=== PATIENT | female | born 2000 | race Caucasian/White ===

== ENCOUNTER 2018-11-23 17:40 | Emergency (ER) | payer OTHER ==
[2018-11-23] MEDS ORDERED: Levofloxacin 500 MG Tab PO ONE (17:41)
--- NOTE | 2018-11-23 18:11 | EDM.PDOC ---
ED HPI GENERAL MEDICAL PROBLEM - General Chief Complaint: Back Pain or Injury Stated Complaint: POSSIBLE KIDNEY INFECTION Time Seen by Provider: 11/23/18 18:00 Source of Information: Reports: Patient History Limitations: Reports: No Limitations - History of Present Illness INITIAL COMMENTS - FREE TEXT/NARRATIVE: Ligia comes into [facility] ED with RCVA pain over the past 5 days, sharp at times, with suspected low grade fever, chills, and some sweats. There is some dysuria with voiding, but no discharge or incontinence. There is no PMH of stone disease or UTI. She has tried no meds. Right Back Pain Score (Numeric/FACES): 7 - Related Data Allergies Allergy/AdvReac Type Severity Reaction Status Date / Time lamotrigine [From Lamictal] Allergy Rash Verified 11/23/18 18:00 lurasidone [From Latuda] Allergy Other Verified 11/23/18 18:00 ED ROS GENERAL - Review of Systems Review Of Systems: See Below Constitutional: Reports: Fever, Chills, Malaise HEENT: Reports: No Symptoms Respiratory: Reports: No Symptoms Cardiovascular: Reports: No Symptoms Endocrine: Reports: No Symptoms GI/Abdominal: Reports: Abdominal Pain (RUQ) : Reports: Dysuria, Pain Musculoskeletal: Reports: Back Pain Skin: Reports: No Symptoms Neurological: Reports: No Symptoms Hematologic/Lymphatic: Reports: No Symptoms Immunologic: Reports: No Symptoms ED EXAM, RENAL/ - Physical Exam Exam: See Below Exam Limited By: No Limitations General Appearance: Alert, WD/WN, No Apparent Distress Head: Normocephalic Neck: Normal Inspection Respiratory/Chest: Lungs Clear, Normal Breath Sounds Cardiovascular: Regular Rate, Rhythm, No Murmur GI/Abdominal: Normal Bowel Sounds, Soft, No Organomegaly, No Distention, No Mass , Guarding, Tender (RUQ) (Female) Exam: Deferred Rectal (Female) Exam: Deferred Back Exam: CVA Tenderness (R) Extremities: Normal Inspection Neurological: Alert, Oriented, CN II-XII Intact, Normal Cognition, Normal Gait, No Motor/Sensory Deficits Psychiatric: Normal Affect, Normal Mood Skin Exam: Warm, Dry, Intact, Normal Color, No Rash Lymphatic: No Adenopathy Course - Vital Signs Text/Narrative:: Following assesment, labs noted CBC and BMP baseline for age, Lactic acid 1.1; the UA was abnormal with WBCs, RBCs, and nitrites pos. A uC was set up, and she will begin Levaquin 500 mg qd pending UC&S reports. Last Recorded V/S: Last Vital Signs Temp 37.1 C 11/23/18 17:40 Pulse 139 H 11/23/18 17:40 Resp 17 11/23/18 17:40 BP 121/76 11/23/18 17:40 Pulse Ox 96 11/23/18 17:40 - Orders/Labs/Meds Orders: Active Orders 24 hr Category Date Time Status CULTURE URINE [RM] Stat Lab 11/23/18 17:46 Received Labs: Laboratory Tests 11/23/18 11/23/18 11/23/18 Range/Units 17:46 18:30 18:30 WBC 9.6 (4.5-12.0) X10-3/uL RBC 4.60 (3.23-5.20) x10(6)uL Hgb 13.2 (11.5-15.5) g/dL Hct 39.0 (30.0-51.3) % MCV 84.6 (80-96) fL MCH 28.6 (27.7-33.6) pg MCHC 33.8 (32.2-35.4) g/dL RDW 13.0 (11.5-15.5) % Plt Count 274 (125-369) X10(3)uL MPV 7.7 (7.4-10.4) fL Neut % (Auto) 80.6 (46-82) % Lymph % (Auto) 10.3 L (13-37) % [place] % (Auto) 8.7 (4-12) % Eos % (Auto) 0 L (1.0-5.0) % Baso % (Auto) 0 (0-2) % Neut # (Auto) 7.8 (1.6-8.3) # Lymph # (Auto) 1.0 (0.6-5.0) # [place] # (Auto) 0.8 (0.0-1.3) # Eos # (Auto) 0.0 (0.0-0.8) # Baso # (Auto) 0.0 (0.0-0.2) # Sodium 137 (135-145) mmol/L Potassium 3.3 L (3.5-5.3) mmol/L Chloride 101 (100-110) mmol/L Carbon Dioxide 25 (21-32) mmol/L BUN 8 (7-18) mg/dL Creatinine 1.1 H (0.55-1.02) mg/dL Est Cr Clr Drug Dosing 76.37 mL/min Estimated GFR (MDRD) > 60 (>60) BUN/Creatinine Ratio 7.3 L (9-20) Glucose 109 (80-116) mg/dL Lactic Acid (0.4-2.2) mmol/L Calcium 8.6 (8.6-10.2) mg/dL Urine Color Yellow (YELLOW) Urine Appearance Cloudy (CLEAR) Urine pH 5.0 (5.0-6.5) Ur Specific [place] 1.015 (1.010-1.025) Urine Protein 30 H (NEGATIVE) mg/dL Urine Glucose (UA) Normal (NORMAL) mg/dL Urine Ketones 15 H (NEGATIVE) mg/dL Urine Occult Blood Large H (NEGATIVE) Urine Nitrite Positive H (NEGATIVE) Urine Bilirubin Small H (NEGATIVE) Urine Urobilinogen Normal (NEGATIVE) mg/dL Ur Leukocyte Esterase Large H (NEGATIVE) Urine RBC 10-20 H (0-5) Urine WBC 75-100 H (0-5) Ur Squamous Epith Cells Occasional (NS,R,O) Urine Bacteria Many H (NS) 11/23/18 Range/Units 18:30 WBC (4.5-12.0) X10-3/uL RBC (3.23-5.20) x10(6)uL Hgb (11.5-15.5) g/dL Hct (30.0-51.3) % MCV (80-96) fL MCH (27.7-33.6) pg MCHC (32.2-35.4) g/dL RDW (11.5-15.5) % Plt Count (125-369) X10(3)uL MPV (7.4-10.4) fL Neut % (Auto) (46-82) % Lymph % (Auto) (13-37) % [place] % (Auto) (4-12) % Eos % (Auto) (1.0-5.0) % Baso % (Auto) (0-2) % Neut # (Auto) (1.6-8.3) # Lymph # (Auto) (0.6-5.0) # [place] # (Auto) (0.0-1.3) # Eos # (Auto) (0.0-0.8) # Baso # (Auto) (0.0-0.2) # Sodium (135-145) mmol/L Potassium (3.5-5.3) mmol/L Chloride (100-110) mmol/L Carbon Dioxide (21-32) mmol/L BUN (7-18) mg/dL Creatinine (0.55-1.02) mg/dL Est Cr Clr Drug Dosing mL/min Estimated GFR (MDRD) (>60) BUN/Creatinine Ratio (9-20) Glucose (80-116) mg/dL Lactic Acid 1.0 (0.4-2.2) mmol/L Calcium (8.6-10.2) mg/dL Urine Color (YELLOW) Urine Appearance (CLEAR) Urine pH (5.0-6.5) Ur Specific [place] (1.010-1.025) Urine Protein (NEGATIVE) mg/dL Urine Glucose (UA) (NORMAL) mg/dL Urine Ketones (NEGATIVE) mg/dL Urine Occult Blood (NEGATIVE) Urine Nitrite (NEGATIVE) Urine Bilirubin (NEGATIVE) Urine Urobilinogen (NEGATIVE) mg/dL Ur Leukocyte Esterase (NEGATIVE) Urine RBC (0-5) Urine WBC (0-5) Ur Squamous Epith Cells (NS,R,O) Urine Bacteria (NS) Departure - Departure Time of Disposition: 19:20 Disposition: Home, Self-Care 01 Condition: Fair Clinical Impression: Urinary tract infection Qualifiers: Urinary tract infection type: site unspecified Hematuria presence: without hematuria Qualified Code(s): N39.0 - Urinary tract infection, site not specified - Discharge Information *PRESCRIPTION DRUG MONITORING PROGRAM REVIEWED*: Not Applicable *COPY OF PRESCRIPTION DRUG MONITORING REPORT IN PATIENT KANDIS: Not Applicable Referrals: PCP,None [Primary Care Provider] - Forms: ED Department Discharge - Problem List & Annotations (1) Urinary tract infection SNOMED Code(s): 16906427 Code(s): N39.0 - URINARY TRACT INFECTION, SITE NOT SPECIFIED Status: Acute Current Visit: Yes Annotation/Comment:: UTI, possible early pyelonephritis. The CBC and Lactic a were normal. I dispensed Levaquin 500 mg qd , advised hydration and routine fever therapy. She should call the ED in 48 hrs for UC&S report. Qualifiers: Urinary tract infection type: site unspecified Hematuria presence: without hematuria Qualified Code(s): N39.0 - Urinary tract infection, site not specified - Problem List Review Problem List Initiated/Reviewed/Updated: Yes - My Orders Last 24 Hours: My Active Orders 11/23/18 17:46 CULTURE URINE [RM] Stat - Assessment/Plan Last 24 Hours: My Active Orders 11/23/18 17:46 CULTURE URINE [RM] Stat Plan: Follow up with PCP for additional medication and surveillance.
== END 2018-11-23 19:27 | disposition home or self-care (01) ==
LOC: FB.ED 17:40
DX: N39.0 Urinary tract infection, site not specified (principal); Z88.8 Allergy status to other drugs, medicaments and biological substances
CPT/HCPCS: 36415; 80048; 81001; 83605; 85025; 87086; 87088; 99283; A9270; 87186

== ENCOUNTER 2019-01-19 09:25 | Emergency (ER) | payer OTHER ==
--- NOTE | 2019-01-19 09:39 | EDM.PDOCBH ---
ED HPI GENERAL MEDICAL PROBLEM - General Stated Complaint: DOESN'T FEEL SAFE Time Seen by Provider: 01/19/19 09:39 Source of Information: Reports: Patient History Limitations: Reports: No Limitations - History of Present Illness INITIAL COMMENTS - FREE TEXT/NARRATIVE: 18-year-old female who reports that for the past 1-1/2 weeks has not really been feeling well about herself and has been feeling more sad and depressed. And , over the weekend she has been feeling very down and has been having thoughts of suicide. She states she does not feel safe with herself and she reports that over the weekend she was thinking about getting into the tub and using her razor and slashing her wrist. Today on the way to work she reports that she Having recurring thoughts of running off the road and rolling her car to kill her self and once at work she was having thoughts of getting a razor and going into the bathroom and slicing her wrists. She states that she does not really want to do these things but feels compelled to do them and doesn't feel that she has any options are way out. She feels very hopeless and very sad and very depressed. She is quite tearful during the interview. She denies doing anything to harm her self today. No nausea or vomiting. No fevers or chills. No cough or sore throat. She is having no pain but her mental anguish which is quite severe. There are no other associated signs or symptoms. There are no other modifying factors. Onset: Other (Increasing sadness and depression over the past week and a half but with perseverative thoughts of suicide over the weekend and worse today.) Duration: Getting Worse Location: Reports: Other (No pain except for minimal [place] which is quite severe.) Quality: Reports: Other (As above) Severity: Severe Improves with: Reports: None Worsens with: Reports: None Context: Reports: Other (As above) Associated Symptoms: Reports: No Other Symptoms (Except as above) Treatments TRAVEL PHYSICAL THERAPIST: Reports: Other (see below) (Nothing. She does report that she has been taking her medications as directed by her doctor. She did miss 2 days last week but otherwise has been taking them appropriately.) - Related Data Allergies Allergy/AdvReac Type Severity Reaction Status Date / Time lamotrigine [From Lamictal] Allergy Rash Verified 11/23/18 18:00 lurasidone [From Latuda] Allergy Other Verified 11/23/18 18:00 Home Meds: Home Meds ARIPiprazole [Aripiprazole] 7.5 mg PO BEDTIME 01/19/19 [History] Escitalopram [Lexapro] 2.5 mg PO BEDTIME 01/19/19 [History] hydrOXYzine HCl [Hydroxyzine HCl] 25 mg PO DAILY 01/19/19 [History] Past Medical History Psychiatric History: Reports: Bipolar - Past Surgical History Other Surgical History Comment: No previous surgeries. Social & Family History - Tobacco Use Smoking Status *Q: Unknown Ever Smoked (Nonsmoker) Second Hand Smoke Exposure: Yes - Caffeine Use Caffeine Use: Reports: Coffee, Soda - Alcohol Use Alcohol Use History: No - Recreational Drug Use Recreational Drug Use: No - Living Situation & Occupation Occupation: Employed ED ROS GENERAL - Review of Systems Review Of Systems: See Below Constitutional: Reports: No Symptoms HEENT: Reports: No Symptoms Respiratory: Reports: No Symptoms Cardiovascular: Reports: No Symptoms Endocrine: Reports: No Symptoms GI/Abdominal: Reports: No Symptoms : Reports: No Symptoms Musculoskeletal: Reports: No Symptoms Skin: Reports: No Symptoms Neurological: Reports: No Symptoms Psychiatric: Reports: Depression, Suicidal Ideation Hematologic/Lymphatic: Reports: No Symptoms Immunologic: Reports: No Symptoms ED EXAM, BEHAVIORAL HEALTH - Physical Exam Exam: See Below Exam Limited By: No Limitations General Appearance: Alert, WD/WN, Moderate Distress, Other (Tearful) Eye Exam: Bilateral Eye: EOMI, Normal Inspection, PERRL Ears: Normal External Exam, Hearing Grossly Normal Nose: Normal Inspection, Normal Mucosa, No Blood Throat/Mouth: Normal Inspection, Normal Lips, Normal Oropharynx, Normal Voice, No Airway Compromise Head: Atraumatic, Normocephalic Neck: Normal Inspection, Supple, Non-Tender, Full Range of Motion Respiratory/Chest: No Respiratory Distress, Lungs Clear, Normal Breath Sounds, No Accessory Muscle Use, Chest Non-Tender Cardiovascular: Normal Peripheral Pulses, Regular Rate, Rhythm, No JVD GI/Abdominal: Normal Bowel Sounds, Soft, Non-Tender, No Mass Back Exam: Normal Inspection, Full Range of Motion Extremities: Normal Inspection, Normal Range of Motion, Non-Tender, No Pedal Edema, Normal Capillary Refill Neurological: Alert, CN II-XII Intact, Normal Cognition, No Motor/Sensory Deficits, Oriented x 3 Psychiatric: Normal Cognition, Depressed Mood, Suicidal Plan, Suicidal Thoughts Skin Exam: Warm, Dry, Intact, Normal color, No rash. No: Signs of self injury COURSE, BEHAVIORAL HEALTH COMP - Course Orders, Labs, Meds: Laboratory Tests 01/19/19 01/19/19 01/19/19 Range/Units 09:48 09:48 09:48 WBC 6.4 (4.5-12.0) X10-3/uL RBC 4.90 (3.23-5.20) x10(6)uL Hgb 14.1 (11.5-15.5) g/dL Hct 41.8 (30.0-51.3) % MCV 85.3 (80-96) fL MCH 28.9 (27.7-33.6) pg MCHC 33.9 (32.2-35.4) g/dL RDW 12.8 (11.5-15.5) % Plt Count 341 (125-369) X10(3)uL MPV 8.5 (7.4-10.4) fL Neut % (Auto) 75.0 (46-82) % Lymph % (Auto) 19.3 (13-37) % [place] % (Auto) 4.9 (4-12) % Eos % (Auto) 0 L (1.0-5.0) % Baso % (Auto) 0 (0-2) % Neut # (Auto) 4.9 (1.6-8.3) # Lymph # (Auto) 1.2 (0.6-5.0) # [place] # (Auto) 0.3 (0.0-1.3) # Eos # (Auto) 0.0 (0.0-0.8) # Baso # (Auto) 0.0 (0.0-0.2) # Sodium 140 (135-145) mmol/L Potassium 4.2 (3.5-5.3) mmol/L Chloride 105 (100-110) mmol/L Carbon Dioxide 26 (21-32) mmol/L BUN 7 (7-18) mg/dL Creatinine 0.8 (0.55-1.02) mg/dL Est Cr Clr Drug Dosing TNP Estimated GFR (MDRD) > 60 (>60) BUN/Creatinine Ratio 8.8 L (9-20) Glucose 87 (80-116) mg/dL Calcium 8.9 (8.6-10.2) mg/dL Total Bilirubin 0.2 (0.1-1.3) mg/dL AST 14 (5-25) IU/L ALT 18 (12-36) U/L Alkaline Phosphatase 90 (56-112) IU/L Total Protein 7.2 (6.0-8.0) g/dL Albumin 3.4 L (3.5-5.2) g/dL Globulin 3.8 g/dL Albumin/Globulin Ratio 0.9 TSH, Ultra Sensitive 1.17 (0.36-3.74) IU/mL Urine Color (YELLOW) Urine Appearance (CLEAR) Urine pH (5.0-6.5) Ur Specific [place] (1.010-1.025) Urine Protein (NEGATIVE) mg/dL Urine Glucose (UA) (NORMAL) mg/dL Urine Ketones (NEGATIVE) mg/dL Urine Occult Blood (NEGATIVE) Urine Nitrite (NEGATIVE) Urine Bilirubin (NEGATIVE) Urine Urobilinogen (NEGATIVE) mg/dL Ur Leukocyte Esterase (NEGATIVE) Urine RBC (0-5) Urine WBC (0-5) Ur Squamous Epith Cells (NS,R,O) Urine Bacteria (NS) Urine HCG, Qual (NEGATIVE) Salicylates < 2.8 L (<2.8) mg/dL Urine Opiates Screen (NEGATIVE) Ur Oxycodone Screen (NEGATIVE) Ur Propoxyphene Screen (NEGATIVE) Acetaminophen < 2 L (<2) ug/mL Ur Barbituates Screen (NEGATIVE) Ur Tricyclics Screen (NEGATIVE) Ur Phencyclidine Scrn (NEGATIVE) Ur Amphetamine Screen (NEGATIVE) Urine MDMA Screen (NEGATIVE) U Benzodiazepines Scrn (NEGATIVE) U Cocaine Metab Screen (NEGATIVE) U Marijuana (THC) Screen (NEGATIVE) Ethyl Alcohol < 0.03 (<0.03) % 01/19/19 01/19/19 01/19/19 Range/Units 10:52 10:52 10:52 WBC (4.5-12.0) X10-3/uL RBC (3.23-5.20) x10(6)uL Hgb (11.5-15.5) g/dL Hct (30.0-51.3) % MCV (80-96) fL MCH (27.7-33.6) pg MCHC (32.2-35.4) g/dL RDW (11.5-15.5) % Plt Count (125-369) X10(3)uL MPV (7.4-10.4) fL Neut % (Auto) (46-82) % Lymph % (Auto) (13-37) % [place] % (Auto) (4-12) % Eos % (Auto) (1.0-5.0) % Baso % (Auto) (0-2) % Neut # (Auto) (1.6-8.3) # Lymph # (Auto) (0.6-5.0) # [place] # (Auto) (0.0-1.3) # Eos # (Auto) (0.0-0.8) # Baso # (Auto) (0.0-0.2) # Sodium (135-145) mmol/L Potassium (3.5-5.3) mmol/L Chloride (100-110) mmol/L Carbon Dioxide (21-32) mmol/L BUN (7-18) mg/dL Creatinine (0.55-1.02) mg/dL Est Cr Clr Drug Dosing Estimated GFR (MDRD) (>60) BUN/Creatinine Ratio (9-20) Glucose (80-116) mg/dL Calcium (8.6-10.2) mg/dL Total Bilirubin (0.1-1.3) mg/dL AST (5-25) IU/L ALT (12-36) U/L Alkaline Phosphatase (56-112) IU/L Total Protein (6.0-8.0) g/dL Albumin (3.5-5.2) g/dL Globulin g/dL Albumin/Globulin Ratio TSH, Ultra Sensitive (0.36-3.74) IU/mL Urine Color Yellow (YELLOW) Urine Appearance Clear (CLEAR) Urine pH 5.0 (5.0-6.5) Ur Specific [place] 1.020 (1.010-1.025) Urine Protein Negative (NEGATIVE) mg/dL Urine Glucose (UA) Normal (NORMAL) mg/dL Urine Ketones 15 H (NEGATIVE) mg/dL Urine Occult Blood Negative (NEGATIVE) Urine Nitrite Negative (NEGATIVE) Urine Bilirubin Small H (NEGATIVE) Urine Urobilinogen Normal (NEGATIVE) mg/dL Ur Leukocyte Esterase Small H (NEGATIVE) Urine RBC 0-5 (0-5) Urine WBC 0-5 (0-5) Ur Squamous Epith Cells Moderate H (NS,R,O) Urine Bacteria Moderate H (NS) Urine HCG, Qual Negative (NEGATIVE) Salicylates (<2.8) mg/dL Urine Opiates Screen Negative (NEGATIVE) Ur Oxycodone Screen Negative (NEGATIVE) Ur Propoxyphene Screen Negative (NEGATIVE) Acetaminophen (<2) ug/mL Ur Barbituates Screen Negative (NEGATIVE) Ur Tricyclics Screen Negative (NEGATIVE) Ur Phencyclidine Scrn Negative (NEGATIVE) Ur Amphetamine Screen Negative (NEGATIVE) Urine MDMA Screen Negative (NEGATIVE) U Benzodiazepines Scrn Negative (NEGATIVE) U Cocaine Metab Screen Negative (NEGATIVE) U Marijuana (THC) Screen Negative (NEGATIVE) Ethyl Alcohol (<0.03) % Re-Assessment/Re-Exam: 11:15 AM: Patient has been calm and cooperative. Her laboratory tests are all reassuringly normal. This includes a negative test. Negative drug urine screen. A negative alcohol. Negative acetaminophen and salicylate and a normal TSH. The patient is definitely having psychiatric compensation and will need inpatient psychiatric care. The patient is agreeable to inpatient admission. She would prefer to go to the psychiatric facility at [facility]. I will call and discuss her case with them. 11:30 AM: I discussed the patient's case with Dr. Arvizu, psychiatrist at [facility], and he has agreed to accept the patient in transfer. The charge nurse was on the call as well and has certify that they do have a bed and the facility available and are capable of taking care of this patient. Therefore the patient will be transferred to [facility] psychiatric unit for direct admission. The patient will need a protected and monitored transport and we are attempting to arrange that now. Departure - Departure Time of Disposition: 11:40 Disposition: DC/Tfer to Psych Hosp/Unit 65 Condition: Fair (Stable) Clinical Impression: Suicidal ideation Bipolar disorder current episode depressed Qualifiers: Current episode severity: severe Psychotic features: without psychotic features Qualified Code(s): F31.4 - Bipolar disorder, current episode depressed , severe, without psychotic features - Discharge Information Referrals: Rosa Pack PA-C [Primary Care Provider] -
[2019-01-19 10:48] LABS: ACETAMINOPHEN < 2 ug/mL (<2)
[2019-01-21 09:09] LABS: CHLAMYDIA TRACHOMATIS, NAA Negative (Negative); NEISSERIA GONORRHOEAE, NAA Negative (Negative)
== END 2019-01-19 13:42 ==
LOC: FB.ED 09:25
DX: F31.4 Bipolar disorder, current episode depressed, severe, without psychotic features (principal); Z77.22 Contact with and (suspected) exposure to environmental tobacco smoke (acute) (chronic); Z79.899 Other long term (current) drug therapy; Z88.8 Allergy status to other drugs, medicaments and biological substances
CPT/HCPCS: 36415; 80053; 80305-QW; 81001; 81025; 84443; 85025; 87491; 87591; 99285; G0480

== ENCOUNTER 2020-03-12 13:58 | Emergency (ER) | payer OTHER ==
--- NOTE | 2020-03-12 14:12 | EDM.PDOC ---
ED HPI GENERAL MEDICAL PROBLEM - General Chief Complaint: Headache Stated Complaint: NUMB SENSATION ALL OVER, HEADACHE AND SOME NEAUSEA Time Seen by Provider: 03/12/20 15:00 Source of Information: Reports: Patient History Limitations: Reports: No Limitations - History of Present Illness INITIAL COMMENTS - FREE TEXT/NARRATIVE: 20 yo F who presented to the ER with headache and generalized numbness. Reports that symptoms started earlier today and got progressively worse. Rates Headache as 6/10. [place] nauseous but no vomiting. No fever, chills. Presented to the ER for further evaluation. Onset: Today Onset Date: 03/12/20 Onset Time: 08:00 Duration: Day(s): (Started earlier today) Location: Reports: Head Quality: Reports: Ache Severity: Moderate Improves with: Reports: None Worsens with: Reports: None Associated Symptoms: Reports: No Other Symptoms - Related Data Allergies Allergy/AdvReac Type Severity Reaction Status Date / Time lamotrigine [From Lamictal] Allergy Rash Verified 11/23/18 18:00 lurasidone [From Latuda] Allergy Other Verified 11/23/18 18:00 Home Meds: Home Meds ARIPiprazole [Abilify] 15 mg PO DAILY 03/12/20 [History] Cholecalciferol (Vitamin D3) [Vitamin D3] 2,000 unit PO DAILY 03/12/20 [History] Folic Acid 1 mg PO DAILY 03/12/20 [History] Sertraline HCl [Zoloft] 50 mg PO DAILY 03/12/20 [History] traZODone HCl [Trazodone HCl] 50 mg PO BEDTIME 03/12/20 [History] Past Medical History - Past Health History Medical/Surgical History: Denies Medical/Surgical History Psychiatric History: Reports: Bipolar - Past Surgical History Other Surgical History Comment: No previous surgeries. Social & Family History - Family History Family Medical History: No Pertinent Family History - Caffeine Use Caffeine Use: Reports: Coffee, Soda Caffeine Use Comment: pop sometimes - Living Situation & Occupation Occupation: Employed ED ROS GENERAL - Review of Systems Review Of Systems: See Below Constitutional: Reports: No Symptoms HEENT: Reports: No Symptoms Respiratory: Reports: No Symptoms Cardiovascular: Reports: No Symptoms Endocrine: Reports: No Symptoms GI/Abdominal: Reports: No Symptoms : Reports: No Symptoms Musculoskeletal: Reports: No Symptoms Skin: Reports: No Symptoms Neurological: Reports: Headache Psychiatric: Reports: No Symptoms Hematologic/Lymphatic: Reports: No Symptoms Immunologic: Reports: No Symptoms - Physical Exam Exam: See Below Exam Limited By: No Limitations General Appearance: WD/WN, No Apparent Distress Eye Exam: Bilateral Eye: Foreign Body, PERRL Ears: Normal External Exam, Normal Canal, Hearing Grossly Normal Nose: Normal Inspection, Normal Mucosa Throat/Mouth: Normal Inspection, Normal Lips, Normal Teeth, Normal Oropharynx, Normal Voice Head Exam: Atraumatic, Normocephalic Neck: Normal Inspection, Supple, Non-Tender, Full Range of Motion Respiratory/Chest: No Respiratory Distress, Lungs Clear, No Accessory Muscle Use Cardiovascular: Normal Peripheral Pulses, Regular Rate, Rhythm, No Edema, No JVD, No Murmur GI/Abdominal: Normal Bowel Sounds, Soft, Non-Tender, No Organomegaly Neuro Exam (Abbreviated): Alert, Oriented, CN II-XII Intact, Normal Cognition, Normal Gait, Normal Reflexes, No Motor/Sensory Deficits Back Exam: Normal Inspection, Full Range of Motion Extremities: Normal Inspection, Normal Range of Motion, Non-Tender, No Pedal Edema, Normal Capillary Refill Psychiatric: Normal Affect, Normal Mood Skin Exam: Warm, Dry, Intact, Normal Color, No Rash Course - Vital Signs Last Recorded V/S: Last Vital Signs Temp 36.6 C 03/12/20 14:10 Pulse 84 03/12/20 16:05 Resp 18 03/12/20 16:05 BP 122/73 03/12/20 16:05 Pulse Ox 95 03/12/20 16:05 - Orders/Labs/Meds Labs: Laboratory Tests 03/12/20 03/12/20 03/12/20 Range/Units 14:30 14:30 14:30 WBC 6.6 (3.0-10.3) x10-3/uL RBC 4.89 (3.60-5.20) x10(6)uL Hgb 13.6 (11.4-15.5) g/dL Hct 41.9 (34.2-48.2) % MCV 85.7 (76.7-100.5) fL MCH 27.8 (23.9-33.9) pg MCHC 32.4 (31.9-34.8) g/dL RDW 13.3 (12.3-16.5) % Plt Count 340 (151-488) x10(3)uL MPV 7.5 (7.1-12.4) fL Neut % (Auto) 58.1 (30.8-76.2) % Lymph % (Auto) 32.6 (18.4-52.1) % [place] % (Auto) 8.0 (4.4-15.7) % Eos % (Auto) 0.9 (0.6-8.1) % Baso % (Auto) 0.4 (0.2-1.5) % Neut # (Auto) 3.9 (1.5-6.3) x10-3/uL Lymph # (Auto) 2.2 (1.0-4.4) x10-3/uL [place] # (Auto) 0.5 (0.3-1.0) x10-3/uL Eos # (Auto) 0.1 (0.0-0.8) x10-3/uL Baso # (Auto) 0.0 (0.0-0.1) x10-3/uL Sodium 140 (135-145) mmol/L Potassium 3.9 (3.5-5.3) mmol/L Chloride 103 (100-110) mmol/L Carbon Dioxide 26 (21-32) mmol/L BUN 9 (7-18) mg/dL Creatinine 0.8 (0.55-1.02) mg/dL Est Cr Clr Drug Dosing TNP Estimated GFR (MDRD) > 60 (>60) BUN/Creatinine Ratio 11.3 (9-20) Glucose 114 (80-116) mg/dL Calcium 8.6 (8.6-10.2) mg/dL Magnesium 2.1 (1.8-2.5) mg/dL Total Bilirubin 0.1 (0.1-1.3) mg/dL AST 14 (5-25) IU/L ALT 19 (12-36) U/L Alkaline Phosphatase 98 (56-112) IU/L Total Protein 7.1 (6.0-8.0) g/dL Albumin 3.4 L (3.5-5.2) g/dL Globulin 3.7 g/dL Albumin/Globulin Ratio 0.9 Urine Color (YELLOW) Urine Appearance (CLEAR) Urine pH (5.0-6.5) Ur Specific [place] (1.010-1.025) Urine Protein (NEGATIVE) mg/dL Urine Glucose (UA) (NORMAL) mg/dL Urine Ketones (NEGATIVE) mg/dL Urine Occult Blood (NEGATIVE) Urine Nitrite (NEGATIVE) Urine Bilirubin (NEGATIVE) Urine Urobilinogen (NEGATIVE) mg/dL Ur Leukocyte Esterase (NEGATIVE) Urine RBC (0-5) Urine WBC (0-5) Ur Squamous Epith Cells (NS,R,O) Urine Bacteria (NS) Urine HCG, Qual (NEGATIVE) 03/12/20 03/12/20 Range/Units 16:10 16:10 WBC (3.0-10.3) x10-3/uL RBC (3.60-5.20) x10(6)uL Hgb (11.4-15.5) g/dL Hct (34.2-48.2) % MCV (76.7-100.5) fL MCH (23.9-33.9) pg MCHC (31.9-34.8) g/dL RDW (12.3-16.5) % Plt Count (151-488) x10(3)uL MPV (7.1-12.4) fL Neut % (Auto) (30.8-76.2) % Lymph % (Auto) (18.4-52.1) % [place] % (Auto) (4.4-15.7) % Eos % (Auto) (0.6-8.1) % Baso % (Auto) (0.2-1.5) % Neut # (Auto) (1.5-6.3) x10-3/uL Lymph # (Auto) (1.0-4.4) x10-3/uL [place] # (Auto) (0.3-1.0) x10-3/uL Eos # (Auto) (0.0-0.8) x10-3/uL Baso # (Auto) (0.0-0.1) x10-3/uL Sodium (135-145) mmol/L Potassium (3.5-5.3) mmol/L Chloride (100-110) mmol/L Carbon Dioxide (21-32) mmol/L BUN (7-18) mg/dL Creatinine (0.55-1.02) mg/dL Est Cr Clr Drug Dosing Estimated GFR (MDRD) (>60) BUN/Creatinine Ratio (9-20) Glucose (80-116) mg/dL Calcium (8.6-10.2) mg/dL Magnesium (1.8-2.5) mg/dL Total Bilirubin (0.1-1.3) mg/dL AST (5-25) IU/L ALT (12-36) U/L Alkaline Phosphatase (56-112) IU/L Total Protein (6.0-8.0) g/dL Albumin (3.5-5.2) g/dL Globulin g/dL Albumin/Globulin Ratio Urine Color Yellow (YELLOW) Urine Appearance Clear (CLEAR) Urine pH 5.0 (5.0-6.5) Ur Specific [place] 1.015 (1.010-1.025) Urine Protein Negative (NEGATIVE) mg/dL Urine Glucose (UA) Normal (NORMAL) mg/dL Urine Ketones Negative (NEGATIVE) mg/dL Urine Occult Blood Negative (NEGATIVE) Urine Nitrite Negative (NEGATIVE) Urine Bilirubin Negative (NEGATIVE) Urine Urobilinogen Normal (NEGATIVE) mg/dL Ur Leukocyte Esterase Negative (NEGATIVE) Urine RBC 0-5 (0-5) Urine WBC 0-5 (0-5) Ur Squamous Epith Cells Few H (NS,R,O) Urine Bacteria Few H (NS) Urine HCG, Qual Negative (NEGATIVE) Meds: Medications Discontinued Medications Generic Name Dose Route Start Last Admin Trade Name Freq PRN Reason Stop Dose Admin Diphenhydramine HCl 25 mg 03/12/20 14:16 03/12/20 15:00 Benadryl IVPUSH 03/12/20 14:17 25 mg ONETIME ONE Administration Sodium Chloride 1,000 mls @ 1,000 mls/hr 03/12/20 14:14 03/12/20 14:50 Normal Saline IV 03/12/20 15:13 1,000 mls/hr .BOLUS ONE Administration Ketorolac Tromethamine 30 mg 03/12/20 14:15 03/12/20 15:15 Toradol IVPUSH 03/12/20 14:16 30 mg ONETIME ONE Administration Ketorolac Tromethamine Confirm 03/12/20 14:51 03/12/20 16:06 Toradol Administered 03/12/20 14:52 Not Given Dose 30 mg .ROUTE .STK-MED ONE Ketorolac Tromethamine Confirm 03/12/20 15:13 03/12/20 16:06 Toradol Administered 03/12/20 15:14 Not Given Dose 30 mg .ROUTE .STK-MED ONE Departure - Departure Time of Disposition: 16:47 Disposition: Home, Self-Care 01 Condition: Good Clinical Impression: Migraine, Complaint of paresthesia, Migraine - Discharge Information Instructions: Paresthesia, Migraine Headache, [id number] Referrals: Rosa Pack PA-C [Primary Care Provider] - Forms: ED Department Discharge Additional Instructions: Follow with PCP Stay hydrated Return if symptoms worsen Call your Physician or Return to Emergency Department if: * Your condition worsens in any way. * You develop fever greater than 100.4. * You have vomitting that does not stop with medications. * You have pain that is not controlled with medications. Sepsis Event Note (ED) - Focused Exam Vital Signs: Vital Signs Temp Pulse Resp BP Pulse Ox 03/12/20 16:05 84 18 122/73 95 03/12/20 14:10 36.6 C 92 16 132/80 99 - Problem List & Annotations (1) Migraine SNOMED Code(s): 46125914 Code(s): G43.909 - MIGRAINE, UNSP, NOT INTRACTABLE, WITHOUT STATUS MIGRAINOSUS Status: Acute (2) Complaint of paresthesia SNOMED Code(s): 561076687 Code(s): R20.2 - PARESTHESIA OF SKIN Status: Acute - Problem List Review Problem List Initiated/Reviewed/Updated: Yes
[2020-03-12] MEDS ORDERED: Sodium Chloride 0.9% 1,000 ML IV ONE (14:14)
[2020-03-12] MEDS ORDERED: Ketorolac 30 MG/ML SDV IVPUSH ONE (14:15)
[2020-03-12] MEDS ORDERED: diphenhydrAMINE 50 MG/ML SDV IVPUSH ONE (14:16)
[2020-03-12] MEDS ORDERED: Ketorolac 30 MG/ML SDV ONE ×2 (14:51→15:13)
== END 2020-03-12 17:00 | disposition home or self-care (01) ==
LOC: FB.ED 13:58
DX: G43.909 Migraine, unspecified, not intractable, without status migrainosus (principal); F31.9 Bipolar disorder, unspecified; Z88.8 Allergy status to other drugs, medicaments and biological substances; Z79.899 Other long term (current) drug therapy
CPT/HCPCS: 36415; 80053; 81001; 81025; 83735; 85025; 96374; 96375; 99284; J1200; J1885; J7030